=== PATIENT | female | born 2005 | race Hispanic/Latino ===

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

== ENCOUNTER 2024-05-14 16:12 | Emergency (ER) | payer BC, MEDICAID ==
[~2024-05-14] VITALS: Ht 165.1 cm; Wt 104.3 kg
--- NOTE | 2024-05-14 16:42 | ERN ---
General Chief Complaint: Halluciations Stated Complaint: PSYCHIATRIC EVALUATION Time Seen by MD: 16:15 History of Present Illness Initial Comments 18-year-old female with a history of schizophrenia and bipolar disorder presents to the ED via EMS for evaluation of auditory and visual hallucinations. Patient denies any SI or HI. Patient mentioned she hears thoughts that are not hers and sees spirits. Patient is taking medication but has not followed up with a psychiatrist stating they will think she is crazy. No other medical or surgical history mentioned. Allergies: Coded Allergies: No Known Drug Allergies (Unverified Allergy, Unknown, 07/14/21) Past Medical History Past Medical History: No Pertinent History Medical History Other: Obesity Past Surgical History: None, Unknown Family History Family History: Negative Social History Social History: Negative ROS Dictation Constitutional: Negative for fever,chills, and weight loss Eyes: Negative for injury, pain,redness, and discharge ENT: Negative for injury,pain or swelling Cardiovascular: Negative for chest pain, palpitations, and edema Respiratory: Negative for shortness of breath, cough, and wheezing, Abdomen/GI: Negative for abdominal pain, nausea, vomiting, diarrhea, and constipation Back: Negative for injury and pain : Negative for injury, bleeding and discharge MS/Extremity: Negative for injury and deformity Skin: Negative for rash, and discoloration Neuro: Negative for headache, weakness, numbness, tingling, and seizure Psych: Positive for hallucinations Negative for suicide ideation, homicidal ideation Physical Exam Physical Exam Dictation General: awake, alert, NAD Head/Face: Normocephalic, atraumatic Eyes: PERRL, EOMI, vision at baseline ENT: oral cavity clear, TMs clear, no signs of infection Neck: Trachea midline, supple, no nuchal rigidity Cardiovascular: RRR, normal S1/S2, No MRGs, no JVD Respiratory: CTAB, no respiratory distress, No rales or wheezes Abdomen: Soft, non-tender, non-distended, normal bowel sounds, no guarding or rebound. Skin: Warm, dry, normal turgor, no rash MS/Extremity: Pulses equal, no cyanosis, neurovascular intact, FROM Neuro: COAx4, GCS 15, strength 5/5, CN 2-12 intact, normal cerebellar exam, normal gait, Psych: Normal behavior, mood, and affect normal Results Laboratory and Microbiology Lab and Micro Result Laboratory Tests Test 05/14/24 16:49 05/14/24 17:47 White Blood Count 7.9 K/uL (4.8-10.8) Red Blood Count 4.72 MIL/uL (4.00-5.50) Hemoglobin 12.6 g/dL (12.0-16.0) Hematocrit 38.6 % (36-48) Mean Corpuscular Volume 81.8 fL (80-100) Mean Corpuscular Hemoglobin 26.7 pg (27.0-33.0) L Mean Corpuscular Hemoglobin Concent 32.6 g/dL (32.0-36.0) Red Cell Distribution Width 14.4 % (11.0-15.5) Platelet Count 308 K/uL (130-400) Mean Platelet Volume 9.7 fL (7.5-10.5) Immature Granulocyte % (Auto) 0.3 % (0-1) Neutrophils (%) (Auto) 69.9 % (40.0-77.0) Lymphocytes (%) (Auto) 18.6 % (21.0-51.0) L Monocytes (%) (Auto) 8.4 % (3.0-13.0) Eosinophils (%) (Auto) 2.2 % (0.0-8.0) Basophils (%) (Auto) 0.6 % (0.0-5.0) Neutrophils # (Auto) 5.5 K/uL (1.8-7.7) Lymphocytes # (Auto) 1.5 K/uL (1.0-4.8) Monocytes # (Auto) 0.7 K/uL (0.1-1.0) Eosinophils # (Auto) 0.17 K/uL (0.00-0.70) Basophils # (Auto) 0.05 K/uL (0.00-0.20) Absolute Immature Granulocyte (auto 0.02 K/uL (0-1) Nucleated Red Blood Cells 0.0 % (0.0-0.19) Sodium Level 142 mmol/L (136-145) Potassium Level 3.5 mmol/L (3.5-5.1) Chloride Level 104 mmol/L (101-111) Carbon Dioxide Level 29 mmol/L (21-32) Blood Urea Nitrogen 3 mg/dL (7-18) L Creatinine 0.8 mg/dL (0.5-1.0) Glomerular Filtration Rate Calc 108 mL/min (>90) Random Glucose 109 mg/dL (70-105) H Total Calcium 9.2 mg/dL (8.5-10.1) Total Creatine Kinase 366 U/L (21-232) H Serum Test, Qualitative NEGATIVE (NEGATIVE) Salicylates Level < 2.8 mg/dL (2.8-20.0) L Acetaminophen Level < 1 mcg/mL (10-30) L Serum Alcohol 6 mg/dL (0-10) Urine Color LIGHT-YELLOW (YELLOW) Urine Appearance CLEAR (CLEAR) Urine pH 7.0 (5.0-8.0) Urine Specific [place] 1.009 (1.001-1.031) Urine Protein NEGATIVE mg/dL (NEGATIVE) Urine Glucose (UA) NEGATIVE mg/dL (NEGATIVE) Urine Ketones 40 mg/dL (NEGATIVE) H Urine Occult Blood SMALL (NEGATIVE) H Urine Nitrate NEGATIVE (NEGATIVE) Urine Bilirubin NEGATIVE mg/dL (NEGATIVE) Urine Urobilinogen 0.2 mg/dL (0.2-1.0) Urine Leukocyte Esterase NEGATIVE Tom/uL Urine RBC 0-1 /HPF (0-1) Urine WBC 2-5 /HPF (0-1) H Urine Squamous Epithelial Cells Rare /HPF (0-2) Urine Bacteria Rare /HPF (None Seen) Urine Opiates Screen NEGATIVE (NEGATIVE) Urine Barbiturates Screen NEGATIVE (NEGATIVE) Urine Phencyclidine Screen NEGATIVE (NEGATIVE) Urine Amphetamines Screen NEGATIVE (NEGATIVE) Urine Benzodiazepines Screen NEGATIVE (NEGATIVE) Urine Cocaine Screen NEGATIVE (NEGATIVE) Urine Marijuana (THC) Screen NEGATIVE (NEGATIVE) Labs Reviewed?: Yes EKG/XRAY/US/CT/MRI EKG Comment EKG 05/14/2024 time 5:13 p.m. ventricular rate 69 sinus rhythm, AK 119, QRS D 87, QT 406. No STEMI MDM MDM: Differential diagnosis: Hallucinations, bipolar, schizophrenia Previous outside records reviewed: Old ER visits. Need for hospitalization: Patient does not meet criteria for hospitalization. Need for emergency major/minor surgery: No Patient's prior external medical records from other ER visits were reviewed by me as indicated. Prior testing and results from previous visits were reviewed. Prior tests were taken into account with medical decision making and resource utilization, independent historian/historians were used to obtain complete medical history. I independently interpreted the test that were performed, results were reviewed by me and considered findings on radiology if ordered. Medical management and examination interpretation discussions were had by me with other qualified healthcare professionals as indicated for the patient's care. Patient has been accepted to [facility] by Dr. Jacob Araujo ED Course Orders Procedure Category Date Status Time Cbc With Differential LAB 05/14/24 Complete 16:35 Alcohol, Blood LAB 05/14/24 Complete 16:35 Salicylate LAB 05/14/24 Complete 16:35 Acetaminophen LAB 05/14/24 Complete 16:35 Testing, LAB 05/14/24 Complete Serum Hcg 16:35 Urinalysis Profile LAB 05/14/24 Complete 16:35 Chest 1vw RAD 05/14/24 Resulted 16:35 12 Lead Ekg Tracing- EKG 05/14/24 Complete Technical 16:35 0.9%Nacl 1000ml (Ns PHA 05/14/24 In Process 1000ml) 17:00 Creatine Kinase, Total LAB 05/14/24 Complete 16:35 Basic Metabolic Panel LAB 05/14/24 Complete 16:35 Drug Screen Urine LAB 05/14/24 Complete 16:35 0.9%Nacl 1000ml (Ns PHA 05/14/24 Complete 1000ml) 18:30 Olanzapine 5 Mg Tab PHA 05/14/24 In Process (Zyprexa 5 Mg Tab) 18:30 Current Medications Medications (Trade) Dose Ordered Sig/James Route PRN Reason Start Time Stop Time Status Last Admin Dose Admin Olanzapine (ZyPREXA 5 mg tab) 5 mg ONCE PO 05/14/24 18:30 06/13/24 18:29 05/14/24 18:39 Sodium Chloride 1,000 ml @ 0 mls/hr ONCE ONCE IV 05/14/24 18:30 05/14/24 18:31 DC 05/14/24 18:39 Sodium Chloride 1,000 ml @ 125 mls/hr ONCE ONCE IV 05/14/24 17:00 05/15/24 00:59 05/14/24 17:51 Vital Signs Date Time Temp Pulse Resp B/P (MAP) Pulse Ox O2 Delivery O2 Flow Rate FiO2 05/14/24 19:16 100.0 90 17 120/94 100 Room Air* 0 05/14/24 16:30 98.2 78 18 132/78 98 Room Air* 0 05/14/24 16:15 98.2 80 16 140/80 98 Room Air 0 DX & DISP Disposition: Transfer Departure Impression: Primary Impression: Suicidal ideation Condition: Stable Referrals: BRANDT SONG DO (PCP) I have reviewed, & agreed with my scribe's, documentation. (Entered by Barbie Olvera, acting as a scribe for Dr. Osman) I personally scribed for KAI OSMAN MD (SACHI) on 05/14/24 at 16:42. Electronically submitted by Barbie Olvera ([employer]). I personally scribed for KAI OSMAN MD (SACHI) on 05/14/24 at 16:43. Electronically submitted by Barbie Olvera ([employer]). I personally scribed for KAI OSMAN MD (SACHI) on 05/14/24 at 17:19. Electronically submitted by Barbie Olvera ([employer]). KAI OSMAN MD May 14, 2024 16:42 JACOB MANZANARES MD May 14, 2024 23:07
[2024-05-14 17:00] LABS: BASOPHILS # (AUTO) 0.05 K/uL (0.00-0.20); BASOPHILS % (AUTO) 0.6 % (0.0-5.0); EOSINOPHILS # (AUTO) 0.17 K/uL (0.00-0.70); EOSINOPHILS % (AUTO) 2.2 % (0.0-8.0); HEMATOCRIT 38.6 % (36-48); IMMATURE GRANULOCYTE ABSOLUTE 0.02 K/uL (0-1); LYMPHOCYTES # (AUTO) 1.5 K/uL (1.0-4.8); LYMPHOCYTES % (AUTO) 18.6 % (21.0-51.0); MEAN CORPUSCULAR HEMOGLOBIN 26.7 pg (27.0-33.0); MEAN CORPUSCULAR HGB CONC 32.6 g/dL (32.0-36.0); MEAN CORPUSCULAR VOLUME 81.8 fL (80-100); MONOCYTES # (AUTO) 0.7 K/uL (0.1-1.0); MONOCYTES % (AUTO) 8.4 % (3.0-13.0); NEUTROPHILS # (AUTO) 5.5 K/uL (1.8-7.7); NEUTROPHILS % (AUTO) 69.9 % (40.0-77.0); PLATELET COUNT (AUTO) 308 K/uL (130-400); RED BLOOD CELL COUNT(AUTO) 4.72 MIL/uL (4.00-5.50); RED CELL DISTRIBUTION WIDTH 14.4 % (11.0-15.5); WHITE BLOOD COUNT (AUTO) 7.9 K/uL (4.8-10.8)
--- NOTE | 2024-05-14 17:06 | HMCIMG ---
Exam Type: CHEST 1VW Clinical Information: chest Comparison: None Findings: The lungs are clear of infiltrates. The heart is normal in size. The bony and soft tissue structures of the chest are unremarkable. Impression: Clear lungs.
[2024-05-14 17:09] LABS: CARBON DIOXIDE 29 mmol/L (21-32); CHLORIDE 104 mmol/L (101-111); CREATININE 0.8 mg/dL (0.5-1.0); GLOMERULAR FILTR. RATE CALC 108 mL/min (>90); GLUCOSE,RANDOM 109 mg/dL (70-105); POTASSIUM 3.5 mmol/L (3.5-5.1); SODIUM SERUM 142 mmol/L (136-145); UREA NITROGEN, BLOOD 3 mg/dL (7-18)
[2024-05-14 17:14] LABS: ACETAMINOPHEN < 1 mcg/mL (10-30); ALCOHOL, BLOOD 6 mg/dL (0-10); CREATINE KINASE, TOTAL 366 U/L (21-232); SALICYLATE < 2.8 mg/dL (2.8-20.0)
--- NOTE | 2024-05-14 17:16 | EKG ---
[facility] Test Date: 2024-05-14 Test Time: 17:13:36 Pat Name: KEVIN RIVAS Department: ED Room: Gender: F Vehicle [employer] Equipment [employer]er: [id number] : 2005 Requested By: KAI OSMAN Order Number: [id number] Reading MD: Serafin Banks Measurements Intervals [place] Rate: 69 P: 5 OR: 119 QRS: 18 QRSD: 87 T: 15 QT: 406 QTc: 434 Interpretive Statements Sinus rhythm No previous ECG available for comparison Electronically Signed On 05-15-2024 11:52:10 WAITER/WAITRESS by Serafin Bnaks Please click the below link to view image of tracing.
[2024-05-14] MEDS: 0.9%NACL 1000ML 1,000 ML IV ONE ×2 (17:51→18:39)
--- NOTE | 2024-05-14 18:16 | NUR ---
[id number]- ALEXANDR WOODS (MOTHER)
[2024-05-14 18:25] LABS: ADD UA MICROSCOPIC YES; APPEARANCE,URINE CLEAR (CLEAR); COLOR,URINE LIGHT-YELLOW (YELLOW); PROTEIN,URINE NEGATIVE (NEGATIVE)
[2024-05-14 18:26] LABS: BILIRUBIN,URINE NEGATIVE (NEGATIVE); GLUCOSE, URINE (UA) NEGATIVE (NEGATIVE); KETONES,URINE 40 mg/dL (NEGATIVE); NITRATE,URINE NEGATIVE (NEGATIVE); OCCULT BLOOD,URINE SMALL (NEGATIVE); UROBILINOGEN,URINE 0.2 mg/dL (0.2-1.0)
[2024-05-14 18:27] LABS: LEUKOCYTE ESTERASE ,URINE NEGATIVE Leu/uL (NEGATIVE)
[2024-05-14 18:33] LABS: RBC,URINE 0-1 /HPF (0-1)
[2024-05-14 18:34] LABS: BACTERIA,URINE Rare /HPF (None Seen); SQUAMOUS EPITHELIAL CELL,UR Rare /HPF (0-2)
[2024-05-14 18:35] LABS: MUCUS,URINE Rare LPF (None Seen)
[2024-05-14] MEDS: oLANZapine 5 MG TAB PO SCH (18:39)
[2024-05-14 19:04] LABS: AMPHET/METH SCREEN,URINE NEGATIVE (NEGATIVE); BARBITURATE SCREEN, URINE NEGATIVE (NEGATIVE); BENZODIAZEPINES SCREEN,URINE NEGATIVE (NEGATIVE); CANNABINOID SCREEN,URINE NEGATIVE (NEGATIVE); COCAINE SCREEN,URINE NEGATIVE (NEGATIVE)
[2024-05-14 19:05] LABS: OPIATE SCREEN,URINE NEGATIVE (NEGATIVE); PHENCYCLIDINE SCREEN,URINE NEGATIVE (NEGATIVE)
--- NOTE | 2024-05-14 19:17 | NUR ---
PATIENT REPORTS SHE HAS BEEN FEELING WEIRD, FEELS IF HER WATER HAS BEEN DRUGGED. REPORTS HEARING HER GRANDMOTHER CALLING HER, BUT WHEN SHE ASKS HER ABOUT IT, GRANDMOTHER DENIES CALLING HER, REPORTS SEEING ORBS ON HER RING CAMERA. PATIENT DENIES SI/HI, NAD NOTED, NS 1 L INFUSING, 500 ML IN BAG.
--- NOTE | 2024-05-14 19:57 | NUR ---
DOLORES FITZGERALD CONTACTED TO INITIATE SCREENING
--- NOTE | 2024-05-14 20:46 | NUR ---
MELLY,SCREENER WITH [facility],AT BEDSIDE
--- NOTE | 2024-05-14 20:49 | NUR ---
SISTER FREDY ERNST
--- NOTE | 2024-05-14 21:51 | NUR ---
PER SCREENER, PATIENT MEETS CRITERIA FOR INPATIENT TREATMENT, PENDING PLACEMENT
[2024-05-14 23:15] VITALS: BP 119/95; PULSE 92; RESP 17; TEMP 99.4; O2SAT 98
--- NOTE | 2024-05-14 23:19 | NUR ---
REPORT GIVEN TO ELIA AMIN AT [facility]
== END 2024-05-15 00:17 ==
LOC: EDH 16:12
DX: R45.851 Suicidal ideations (principal); E66.9 Obesity, unspecified; F31.9 Bipolar disorder, unspecified
CPT/HCPCS: 99285; 96360; 96361; 71045; 82550; 80048; 80305; 84703; 85025; 36415; 93005; 81001; G0481; J7030 ×2

== ENCOUNTER 2024-12-28 08:50 | Emergency (ER) | payer BC ==
[~2024-12-28] VITALS: Ht 167.6 cm; Wt 163.3 kg
--- NOTE | 2024-12-28 09:13 | ERN ---
General Chief Complaint: Abdominal Pain Stated Complaint: ABDOMINAL PAIN Time Seen by MD: 08:56 Source: patient History of Present Illness Initial Comments Patient is a 19-year-old female coming in complaining of abdominal pain. Per patient her abdominal pain has been ongoing for two days. She states that the pain is localized to the left upper quadrant epigastric region. Long with the pain patient has been feeling decreased appetite secondary to the discomfort. Allergies: Coded Allergies: No Known Drug Allergies (Unverified Allergy, Unknown, 07/14/21) Past Medical History Past Medical History: Anxiety, Bipolar, Depression, Gallstones, Hypothyroid, Schizophrenia Medical History Other: Obesity Past Surgical History: None, Unknown Family History Family History: Negative Social History Social History: Negative Female( History) LMP: Dec 18, 2024 ROS Dictation CONSTITUTIONAL: No chills, no fever, no weakness, no diaphoresis, no malaise. HEAD/FACE: No signs of trauma. EENT: No eye pain, no blurred vision, no tearing, no double vision, no ear pain, no ear discharge, no nose pain, no nasal congestion, no throat pain, no throat swelling, no mouth pain. RESPIRATORY: No cough, no orthopnea, no SOB, no stridor, no wheezing. CARDIOVASCULAR: No chest pain, no edema, no palpitations, no syncope. GASTROINTESTINAL/ABDOMINAL: abdominal pain, no constipation, no diarrhea, no nausea, no vomiting. GENITOURINARY: No abnormal discharge, no dysuria, no frequent urination, no hematuria. No complaints of pain in the genitals. MUSCULOSKELETAL: No back pain, no gout, no joint pain, no joint swelling, no muscle pain, no muscle stiffness, no neck pain. INTEGUMENTARY: No change in color, no change in hair/nails, no dryness, no lesion, no lumps, no rash. NEUROLOGICAL/PSYCH: No anxiety, not depressed, no emotional problem, no headache, no numbness, no pre-existing deficit, no history of seizures, no tremors, no weakness. HEMATOLOGIC/LYMPHATIC: Not anemic, no history of blood clots, no apparent bleeding, no bruising, glands not swollen. All Systems Negative, Except as Noted. Physical Exam Physical Exam Dictation VITAL SIGNS: Reviewed. GENERAL APPEARANCE: Alert, oriented x3, no acute distress, obese. HEAD AND FACE: Non-traumatic. EYES: PERRL, pink conjunctivas, eyelid no trauma, anterior chamber clear. EARS: Pinnas intact and no signs of trauma or erythema. Ear canals clear and no discharge. TMs no erythema. NOSE: No discharge, no bleeding. OROPHARYNX: Mouth normal, teeth no caries, tongue pink. Pharynx clear, no erythema. Tonsils no exudates, no abscesses noted. Mucous membrane moist. NECK: Supple, non-tender, no thyromegaly, no masses, no JVD, no bruits. BREAST: Deferred. CHEST: No tenderness, no crepitus, no paradoxical movement, no retractions. LUNGS: Clear, well-ventilated, symmetric, no rales, no wheezing, no rhonchi, no stridor, good breath sounds bilaterally. HEART: Regular rate, regular rhythm, no murmur, no gallops. VASCULAR: No peripheral edema. ABDOMEN: Soft, positive bowel sounds, nondistended, no guarding, epigastric pain on palpation, left upper quadrant pain on palpation, no rebound, no masses no hepatomegaly, no splenomegaly, no Manzano's sign, no hernias. RECTAL: Deferred. GENITAL: Deferred. NEUROLOGICAL: Normal speech, gross motor function intact, gross sensory function intact. MUSCULOSKELETAL: Neck nontender, full range of motion, back nontender, full range of motion. EXTREMITIES: Nontender, full range of motion. SKIN: Color pink, dry, no turgor, no rash, no lacerations, no abrasions, no contusions. LYMPHATICS: Deferred. Results Laboratory and Microbiology Lab and Micro Result Laboratory Tests Test 12/28/24 09:10 White Blood Count 7.5 K/uL (4.8-10.8) Red Blood Count 4.76 MIL/uL (4.00-5.50) Hemoglobin 12.8 g/dL (12.0-16.0) Hematocrit 38.8 % (36-48) Mean Corpuscular Volume 81.5 fL (80-100) Mean Corpuscular Hemoglobin 26.9 pg (27.0-33.0) L Mean Corpuscular Hemoglobin Concent 33.0 g/dL (32.0-36.0) Red Cell Distribution Width 14.0 % (11.0-15.5) Platelet Count 371 K/uL (130-400) Mean Platelet Volume 9.4 fL (7.5-10.5) Immature Granulocyte % (Auto) 0.5 % (0-1) Neutrophils (%) (Auto) 62.4 % (40.0-77.0) Lymphocytes (%) (Auto) 25.7 % (21.0-51.0) Monocytes (%) (Auto) 10.6 % (3.0-13.0) Eosinophils (%) (Auto) 0.3 % (0.0-8.0) Basophils (%) (Auto) 0.5 % (0.0-5.0) Neutrophils # (Auto) 4.7 K/uL (1.8-7.7) Lymphocytes # (Auto) 1.9 K/uL (1.0-4.8) Monocytes # (Auto) 0.8 K/uL (0.1-1.0) Eosinophils # (Auto) 0.02 K/uL (0.00-0.70) Basophils # (Auto) 0.04 K/uL (0.00-0.20) Absolute Immature Granulocyte (auto 0.04 K/uL (0-1) Nucleated Red Blood Cells 0.0 % (0.0-0.19) Urine Color LIGHT-YELLOW (YELLOW) Urine Appearance CLEAR (CLEAR) Urine pH 6.0 (5.0-8.0) Urine Specific [place] 1.010 (1.001-1.031) Urine Protein NEGATIVE mg/dL (NEGATIVE) Urine Glucose (UA) NEGATIVE mg/dL (NEGATIVE) Urine Ketones 5 mg/dL (NEGATIVE) H Urine Occult Blood NEGATIVE (NEGATIVE) Urine Nitrate NEGATIVE (NEGATIVE) Urine Bilirubin NEGATIVE mg/dL (NEGATIVE) Urine Urobilinogen 0.2 mg/dL (0.2-1.0) Urine Leukocyte Esterase NEGATIVE Tom/uL Urine RBC 2-5 /HPF (0-1) H Urine WBC 2-5 /HPF (0-1) H Urine Squamous Epithelial Cells FEW /HPF (0-2) Urine Bacteria None /HPF (None Seen) Urine HCG, Qualitative NEGATIVE (NEGATIVE) Sodium Level 143 mmol/L (136-145) Potassium Level 3.4 mmol/L (3.5-5.1) L Chloride Level 103 mmol/L (101-111) Carbon Dioxide Level 28 mmol/L (21-32) Blood Urea Nitrogen 7 mg/dL (7-18) Creatinine 0.8 mg/dL (0.5-1.0) Glomerular Filtration Rate Calc 107 mL/min (>90) Random Glucose 105 mg/dL (70-105) Total Calcium 8.9 mg/dL (8.5-10.1) Total Bilirubin 0.7 mg/dL (0.2-1.0) Aspartate Amino Transf (AST/SGOT) 44 U/L (10-37) H Alanine Aminotransferase (ALT/SGPT) 63 U/L (12-78) Alkaline Phosphatase 80 U/L (50-136) Total Protein 8.4 g/dL (6.0-8.3) H Albumin 4.2 g/dL (3.5-5.0) Lipase 21 U/L (16-77) Human Chorionic Gonadotropin, Quant 0 mIU/mL (0-5) Labs Reviewed?: Yes MDM MDM: Differential diagnosis: Gastritis, GERD, cholelithiasis, cholecystitis, appendicitis, pancreatitis, Rationale: Tests considered and ordered secondary to shared decision making include: Previous outside records reviewed: Old ER visits. Risk of complication and/or morbidity or mortality of patient management: None Medications-Per medication reconciliation Need for hospitalization: Patient does not meet criteria for hospitalization. Patient is a 19-year-old female coming in complaining of abdominal discomfort. Laboratory workup negative for pathology. Patient received GI cocktail states he feels much better will be discharged in stable condition with a diagnosis of GERD. ED Course Orders Procedure Category Date Status Time Cbc With Differential LAB 12/28/24 Complete 09:02 Comprehensive LAB 12/28/24 Complete Metabolic Panel 09:02 Hcg,Quantitative LAB 12/28/24 Complete 09:02 ,Urine Test LAB 12/28/24 Complete 09:02 Urinalysis Profile LAB 12/28/24 Complete 09:02 Lactated Ringers PHA 12/28/24 Complete 1000ml (Lactated 09:30 Ondansetron 4mg Inj PHA 12/28/24 Complete (Zofran 4mg Inj) 09:30 Pantoprazole 40mg Inj PHA 12/28/24 Complete (Protonix 40mg Inj 09:30 Lipase LAB 12/28/24 Complete 09:02 Lidocaine Hcl 2% PHA 12/28/24 Complete Viscous (Lidocaine Hcl 10:00 Mag/Alum/Simeth 30ml PHA 12/28/24 Complete (Maalox Plus 30ml) 10:00 Current Medications Medications (Trade) Dose Ordered Sig/James Route PRN Reason Start Time Stop Time Status Last Admin Dose Admin Al Hydroxide/Mg Hydroxide (MAALox PLUS 30ML) 30 ml ONCE ONCE PO 12/28/24 10:00 12/28/24 10:01 DC 12/28/24 10:05 Lactated Ringer's 1,000 ml @ 0 mls/hr ONCE ONCE IV 12/28/24 09:30 12/28/24 09:31 DC Lidocaine HCl (Lidocaine HCl 2% Viscous) 10 ml ONCE ONCE PO 12/28/24 10:00 12/28/24 10:01 DC 12/28/24 10:05 Ondansetron HCl (zoFRAN 4MG INJ) 4 mg ONCE ONCE IVP 12/28/24 09:30 12/28/24 09:31 DC Pantoprazole Sodium (PROTonix 40MG INJ) 40 mg ONCE ONCE IVP 12/28/24 09:30 12/28/24 09:31 DC Vital Signs Date Time Temp Pulse Resp B/P (MAP) Pulse Ox O2 Delivery O2 Flow Rate FiO2 12/28/24 10:20 97.7 68 19 144/80 98 Room Air* 0 21 12/28/24 08:53 98.8 65 20 141/85 99 Room Air DX & DISP Disposition: Discharge Departure Impression: Primary Impression: GERD (gastroesophageal reflux disease) Additional Impression: Gastritis Condition: Stable Scripts Pantoprazole Sodium (Protonix) 40 Mg Ectab 1 TAB PO DAILY for 30 Days, #30 TAB 0 Refills Prov: KAI OSMAN MD 12/28/24 Additional Instructions: FOLLOW-UP WITH PRIMARY CARE PROVIDER IN 1 TO 2 DAYS. TAKE MEDICATIONS DIRECTED HERE IN THE EMERGENCY ROOM. OKAY TO CONTINUE HOME MEDICATIONS UNLESS OTHERWISE DISCUSSED DURING YOUR VISIT IN THE EMERGENCY ROOM TODAY. RETURN TO YOUR NEAREST EMERGENCY ROOM IF SYMPTOMS WORSEN OR IF THERE IS NO IMPROVEMENT. CALL 911 IF YOU NEED IMMEDIATE ASSISTANCE. TAKE TYLENOL [id number] NEEDED AND IF NO CONTRAINDICATIONS ARE PRESENT. INCREASE ORAL HYDRATION. A WOUND CULTURE OR URINE CULTURE WAS ORDERED HERE IN THE EMERGENCY ROOM DEPARTMENT PLEASE FOLLOW-UP WITH PRIMARY CARE PROVIDER AND ADVISE THEM TO GET REPORTS FROM OUR FACILITY. IF YOU HAD ANY BETH WRAP/SPLINTS THAT WERE APPLIED HERE, PLEASE DO NOT REMOVE THEM UNTIL YOU SEE YOUR PRIMARY CARE OR SPECIALTY. Referrals: Referrals: JAYCEE COURTNEY MD (PCP) Time of Disposition: 10:32 KAI OSMAN MD Dec 28, 2024 09:13
[2024-12-28 09:20] LABS: IMMATURE GRANULOCYTE ABSOLUTE 0.04 K/uL (0-1); NUCLEATED RED BLOOD CELLS 0.0 % (0.0-0.19); PLATELET COUNT (AUTO) 371 K/uL (130-400); RED BLOOD CELL COUNT(AUTO) 4.76 MIL/uL (4.00-5.50); RED CELL DISTRIBUTION WIDTH 14.0 % (11.0-15.5); WHITE BLOOD COUNT (AUTO) 7.5 K/uL (4.8-10.8)
[2024-12-28 09:22] LABS: APPEARANCE,URINE CLEAR (CLEAR); GLUCOSE, URINE (UA) NEGATIVE (NEGATIVE); LEUKOCYTE ESTERASE ,URINE NEGATIVE Leu/uL (NEGATIVE); NITRATE,URINE NEGATIVE (NEGATIVE); OCCULT BLOOD,URINE NEGATIVE (NEGATIVE)
[2024-12-28 09:24] LABS: HCG,QUALITATIVE URINE NEGATIVE (NEGATIVE)
[2024-12-28 09:25] LABS: ADD UA MICROSCOPIC YES
[2024-12-28 09:27] LABS: CREATININE 0.8 mg/dL (0.5-1.0); GLOMERULAR FILTR. RATE CALC 107.0 mL/min (>90); GLUCOSE,RANDOM 105.0 mg/dL (70-105); SODIUM SERUM 143.0 mmol/L (136-145); UREA NITROGEN, BLOOD 7.0 mg/dL (7-18)
[2024-12-28 09:30] LABS: SQUAMOUS EPITHELIAL CELL,UR FEW /HPF (0-2)
[2024-12-28 09:38] LABS: ASPARTATE AMINOTRANSFERASE 44.0 U/L (10-37); HCG,QUANTITATIVE 0.0 mIU/mL (0-5); TOTAL PROTEIN, SERUM 8.4 g/dL (6.0-8.3)
[2024-12-28] MEDS: MAG/ALUM/SIMETH 30 ML UDCUP PO ONE (10:05)
[2024-12-28] MEDS: LIDOCAINE HCL 2% VISCOUS 15 ML UDCUP PO ONE (10:05)
[2024-12-28] MEDS ORDERED: PANT40TA55 PO (10:32)
[2024-12-28] MEDS: LACTATED RINGERS 1000ML 1,000 ML IV ONE (10:39)
[2024-12-28 10:54] VITALS: BP 136/87; PULSE 71; RESP 18; TEMP 98.3; O2SAT 97
--- NOTE | 2024-12-28 10:55 | NUR ---
DC PATIENT WAS DC'D BY DR OSMAN I EXPLAINED TO PATIENT TO FOLLOW UP WITH PCP, EXPLAINED NEW PRESCRIPTIONS AND HOW TO TAKE THEM AND PROVIDED INFO BASED ON DIAGNOSIS, I ALSO ANSWERED ANY QUESTIONS THE PATIENT HAD, PATIENT AMBULATED OUT OF ED, NO COMPLICATIONS
== END 2024-12-28 10:58 | disposition home or self-care (01) ==
LOC: EDH 08:50
DX: K21.9 Gastro-esophageal reflux disease without esophagitis (principal); K29.70 Gastritis, unspecified, without bleeding; F41.9 Anxiety disorder, unspecified; E03.9 Hypothyroidism, unspecified; E66.9 Obesity, unspecified; F20.9 Schizophrenia, unspecified; F31.9 Bipolar disorder, unspecified; R10.2 Pelvic and perineal pain
CPT/HCPCS: 36415; 80053; 81001; 81025; 83690; 84702; 85025; 99283